=== PATIENT | male | born 1955 | race African-American/Black ===

== ENCOUNTER 2024-02-05 17:31 | Inpatient (IN) | payer BC ==
[~2024-02-05] VITALS: Ht 172.7 cm; Wt 76.7 kg
[2024-02-05 17:31] VITALS: BP_SYST 115; PULSE 89; RESP 18; TEMP 97.8; O2SAT 95
[2024-02-05 19:00] VITALS: O2SAT 98
[2024-02-05] MEDS ORDERED: ACETAMINOPHEN 325 MG TABLET PO PRN (20:15)
[2024-02-05] MEDS ORDERED: ONDANSETRON HCL 4 MG/2 ML VIAL IVP PRN (20:15)
[2024-02-05] MEDS ORDERED: HYDROcodone/ACETAMIN 10-325 MG TAB PO PRN (20:15)
[2024-02-05] MEDS ORDERED: HYDROcodone/ACETAMIN 5-325 MG TAB (NORCO/ VICODIN) PO PRN (20:15)
[2024-02-05] MEDS ORDERED: ALBUTEROL SULFATE 0.083% 2.5 MG/3 ML VIAL.NEB INH PRN (20:15)
[2024-02-05] MEDS ORDERED: hydrALAZINE HCL 20 MG/ML VIAL IVP PRN (20:30)
[2024-02-05 21:04] LABS: BASOPHILS % (AUTO) 0.4 % (0.0-2.0); EOSINOPHILS # (AUTO) 0.3 K/uL (0.0-0.4); EOSINOPHILS % (AUTO) 5.8 % (0.0-4.0); HEMATOCRIT 38.5 % (36-54); HEMOGLOBIN 12.9 g/dL (14.0-18.0); LYMPHOCYTES # (AUTO) 1.1 K/uL (1.0-5.5); LYMPHOCYTES % (AUTO) 20.1 % (20.5-51.5); MEAN CORPUSCULAR HEMOGLOBIN 32 pg (27-31); MEAN CORPUSCULAR HGB CONC 34 % (32-36); MEAN CORPUSCULAR VOLUME 97 fL (79.0-98.0); MONOCYTES # (AUTO) 0.8 K/uL (0.0-1.0); MONOCYTES % (AUTO) 14.9 % (1.7-9.3); NEUTROPHILS # (AUTO) 3.3 K/uL (1.8-7.7); NEUTROPHILS % (AUTO) 58.8 % (40.0-70.0); PLATELET COUNT (AUTO) 137 K/uL (130-430); RED BLOOD CELL COUNT(AUTO) 3.97 MIL/uL (4.2-6.2); RED CELL DISTRIBUTION WIDTH 16.3 % (9.0-15.0); WHITE BLOOD COUNT (AUTO) 5.5 K/uL (4.8-10.8)
[2024-02-05 21:10] LABS: ALBUMIN 2.2 g/dL (3.4-4.8); BILIRUBIN,DIRECT 0.1 mg/dL (0.0-0.3); CALCIUM 9.4 mg/dL (8.4-11.0); CREATININE 6.46 mg/dL (0.55-1.30); POTASSIUM 4.6 mmol/L (3.5-5.1); TOTAL BILIRUBIN 0.2 mg/dL (0.0-1.0); TOTAL PROTEIN, SERUM 6.5 g/dL (6.4-8.3)
[2024-02-05 23:05] VITALS: BP_SYST 118; PULSE 80; O2SAT 95
[2024-02-06 08:10] LABS: BASOPHILS % (AUTO) 0.5 % (0.0-2.0); EOSINOPHILS # (AUTO) 0.3 K/uL (0.0-0.4); EOSINOPHILS % (AUTO) 5.4 % (0.0-4.0); HEMOGLOBIN 13.4 g/dL (14.0-18.0); LYMPHOCYTES % (AUTO) 21.1 % (20.5-51.5); MEAN CORPUSCULAR HEMOGLOBIN 32 pg (27-31); MEAN CORPUSCULAR HGB CONC 33 % (32-36); MEAN CORPUSCULAR VOLUME 98 fL (79.0-98.0); MONOCYTES # (AUTO) 0.6 K/uL (0.0-1.0); MONOCYTES % (AUTO) 12.9 % (1.7-9.3); NEUTROPHILS # (AUTO) 2.9 K/uL (1.8-7.7); NEUTROPHILS % (AUTO) 60.1 % (40.0-70.0); PLATELET COUNT (AUTO) 136 K/uL (130-430); RED BLOOD CELL COUNT(AUTO) 4.19 MIL/uL (4.2-6.2); WHITE BLOOD COUNT (AUTO) 4.9 K/uL (4.8-10.8)
[2024-02-06 08:30] LABS: ALBUMIN 2.3 g/dL (3.4-4.8); CALCIUM 9.5 mg/dL (8.4-11.0); CREATININE 6.93 mg/dL (0.55-1.30); TOTAL BILIRUBIN 0.3 mg/dL (0.0-1.0); TOTAL PROTEIN, SERUM 6.8 g/dL (6.4-8.3)
[2024-02-06 10:18] VITALS: BP_SYST 141; PULSE 76; RESP 18; TEMP 97.2; O2SAT 99
[2024-02-06 11:48] LABS: PHOSPHORUS 6.3 mg/dL (2.7-4.5)
[2024-02-06] MEDS ORDERED: MELA1TAB29 PO (15:43)
[2024-02-06] MEDS ORDERED: FER300L PO (15:43)
[2024-02-06] MEDS ORDERED: DOCU-144 PO (15:43)
[2024-02-06] MEDS ORDERED: CLIN-22 PO (15:43)
[2024-02-06] MEDS ORDERED: NOR10 PO (15:43)
[2024-02-06] MEDS ORDERED: LIP80 PO (15:43)
[2024-02-06] MEDS ORDERED: SER25 PO (15:43)
[2024-02-06] MEDS ORDERED: POLY17PO4 PO (15:43)
[2024-02-06] MEDS ORDERED: LEVO750T64 PO (15:43)
[2024-02-06] MEDS ORDERED: B1/B1TAB5 PO (15:43)
[2024-02-06] MEDS ORDERED: ACET325T PO (15:43)
[2024-02-06] MEDS ORDERED: LEVO100T PO (15:43)
[2024-02-06] MEDS ORDERED: HYDR-4280 PO (15:43)
[2024-02-06] MEDS ORDERED: IBUP-1970 PO (15:43)
[2024-02-06] MEDS ORDERED: VALP250S3 PO (15:47)
[2024-02-06] MEDS ORDERED: VITD400 PO (15:47)
[2024-02-06] MEDS ORDERED: THIA100T70 PO (15:47)
[2024-02-06 16:25] VITALS: BP_SYST 157; PULSE 79; RESP 16; TEMP 97; O2SAT 97
[2024-02-06 17:29] VITALS: BP_SYST 151; PULSE 80; RESP 16; TEMP 97.1; O2SAT 97
[2024-02-06 19:00] VITALS: O2SAT 98
[2024-02-06 20:00] VITALS: BP_SYST 141; PULSE 51; RESP 16; TEMP 97; O2SAT 98
[2024-02-07] VITALS (7 sets, daily range): BP systolic 133–146; PULSE 72–86; RESP 16–18; TEMP 97–98; O2SAT 97–100
[2024-02-07 05:15] LABS: INR 1.1 (0.80-1.20); PROTHROMBIN TIME 11.3 SECS (9.5-12.5)
[2024-02-07 14:31] LABS: BASOPHILS % (AUTO) 0.7 % (0.0-2.0); EOSINOPHILS # (AUTO) 0.2 K/uL (0.0-0.4); EOSINOPHILS % (AUTO) 4.2 % (0.0-4.0); HEMATOCRIT 47.9 % (36-54); HEMOGLOBIN 15.9 g/dL (14.0-18.0); LYMPHOCYTES # (AUTO) 1.4 K/uL (1.0-5.5); MEAN CORPUSCULAR HEMOGLOBIN 32 pg (27-31); MEAN CORPUSCULAR HGB CONC 33 % (32-36); MEAN CORPUSCULAR VOLUME 97 fL (79.0-98.0); MONOCYTES # (AUTO) 0.5 K/uL (0.0-1.0); MONOCYTES % (AUTO) 8.9 % (1.7-9.3); NEUTROPHILS # (AUTO) 3.2 K/uL (1.8-7.7); NEUTROPHILS % (AUTO) 59.2 % (40.0-70.0); PLATELET COUNT (AUTO) 168 K/uL (130-430); RED BLOOD CELL COUNT(AUTO) 4.93 MIL/uL (4.2-6.2); RED CELL DISTRIBUTION WIDTH 16.1 % (9.0-15.0); WHITE BLOOD COUNT (AUTO) 5.3 K/uL (4.8-10.8)
[2024-02-07 14:32] LABS: CALCIUM 10.4 mg/dL (8.4-11.0); PHOSPHORUS 6.4 mg/dL (2.7-4.5); TOTAL BILIRUBIN 0.4 mg/dL (0.0-1.0)
[2024-02-07 14:38] LABS: POTASSIUM 5.6 mmol/L (3.5-5.1)
[2024-02-07 14:39] LABS: CREATININE 7.61 mg/dL (0.55-1.30)
[2024-02-07] MEDS: fentaNYL CITRATE/PF 100 MCG/2 ML AMP ONE (14:47)
[2024-02-07] MEDS: MIDAZOLAM HCL 5 MG/5 ML VIAL ONE (14:48)
[2024-02-08] VITALS (7 sets, daily range): BP systolic 125–138; PULSE 78–87; RESP 16–18; TEMP 97.6–98; O2SAT 96–100
[2024-02-08] MEDS: MELATONIN 3 MG TABLET PO PRN (00:46)
[2024-02-08 07:21] LABS: ALBUMIN 2.3 g/dL (3.4-4.8); CREATININE 5.5 mg/dL (0.55-1.30); POTASSIUM 4.4 mmol/L (3.5-5.1); TOTAL BILIRUBIN 0.4 mg/dL (0.0-1.0)
[2024-02-08 08:24] LABS: BASOPHILS % (AUTO) 0.5 % (0.0-2.0); EOSINOPHILS # (AUTO) 0.3 K/uL (0.0-0.4); EOSINOPHILS % (AUTO) 4.3 % (0.0-4.0); HEMATOCRIT 39.9 % (36-54); HEMOGLOBIN 13.5 g/dL (14.0-18.0); LYMPHOCYTES % (AUTO) 16.5 % (20.5-51.5); MEAN CORPUSCULAR HEMOGLOBIN 33 pg (27-31); MEAN CORPUSCULAR HGB CONC 34 % (32-36); MEAN CORPUSCULAR VOLUME 96 fL (79.0-98.0); MONOCYTES # (AUTO) 0.7 K/uL (0.0-1.0); MONOCYTES % (AUTO) 11.8 % (1.7-9.3); NEUTROPHILS # (AUTO) 4.2 K/uL (1.8-7.7); NEUTROPHILS % (AUTO) 66.9 % (40.0-70.0); PLATELET COUNT (AUTO) 126 K/uL (130-430); RED BLOOD CELL COUNT(AUTO) 4.14 MIL/uL (4.2-6.2); RED CELL DISTRIBUTION WIDTH 16.2 % (9.0-15.0); WHITE BLOOD COUNT (AUTO) 6.3 K/uL (4.8-10.8)
[2024-02-09 00:45] VITALS: BP_SYST 149; PULSE 86; RESP 14; TEMP 97.6; O2SAT 97
[2024-02-09 06:57] LABS: ALBUMIN 2.5 g/dL (3.4-4.8); CALCIUM 9.3 mg/dL (8.4-11.0); CREATININE 4.7 mg/dL (0.55-1.30); POTASSIUM 4.3 mmol/L (3.5-5.1); TOTAL BILIRUBIN 0.4 mg/dL (0.0-1.0); TOTAL PROTEIN, SERUM 7.2 g/dL (6.4-8.3)
[2024-02-09 07:28] LABS: BASOPHILS # (AUTO) 0.1 K/uL (0.0-0.2); BASOPHILS % (AUTO) 0.7 % (0.0-2.0); EOSINOPHILS # (AUTO) 0.4 K/uL (0.0-0.4); EOSINOPHILS % (AUTO) 6.4 % (0.0-4.0); HEMATOCRIT 41.6 % (36-54); HEMOGLOBIN 13.8 g/dL (14.0-18.0); LYMPHOCYTES # (AUTO) 1.6 K/uL (1.0-5.5); LYMPHOCYTES % (AUTO) 22.7 % (20.5-51.5); MEAN CORPUSCULAR HEMOGLOBIN 32 pg (27-31); MEAN CORPUSCULAR HGB CONC 33 % (32-36); MEAN CORPUSCULAR VOLUME 97 fL (79.0-98.0); MONOCYTES # (AUTO) 1.1 K/uL (0.0-1.0); MONOCYTES % (AUTO) 15.2 % (1.7-9.3); NEUTROPHILS # (AUTO) 3.8 K/uL (1.8-7.7); PLATELET COUNT (AUTO) 128 K/uL (130-430); RED BLOOD CELL COUNT(AUTO) 4.28 MIL/uL (4.2-6.2); RED CELL DISTRIBUTION WIDTH 16.1 % (9.0-15.0)
[2024-02-09 08:00] VITALS: BP_SYST 129; PULSE 74; RESP 17; TEMP 98.1; O2SAT 99
[2024-02-09 12:00] VITALS: BP_SYST 135; PULSE 89; RESP 15; TEMP 97.7; O2SAT 97
[2024-02-09 16:32] VITALS: BP_SYST 140; PULSE 87; RESP 15; TEMP 97.8; O2SAT 96
[2024-02-09 20:00] VITALS: BP_SYST 98; PULSE 95; RESP 16; TEMP 97.5; O2SAT 96
[2024-02-10] VITALS: BP_SYST 110; PULSE 91; RESP 16; TEMP 97.9; O2SAT 99
[2024-02-10 05:03] LABS: BASOPHILS % (AUTO) 0.6 % (0.0-2.0); EOSINOPHILS # (AUTO) 0.3 K/uL (0.0-0.4); EOSINOPHILS % (AUTO) 5.3 % (0.0-4.0); HEMATOCRIT 32.7 % (36-54); HEMOGLOBIN 10.7 g/dL (14.0-18.0); LYMPHOCYTES # (AUTO) 1.4 K/uL (1.0-5.5); LYMPHOCYTES % (AUTO) 24.4 % (20.5-51.5); MEAN CORPUSCULAR HEMOGLOBIN 31 pg (27-31); MEAN CORPUSCULAR HGB CONC 33 % (32-36); MEAN CORPUSCULAR VOLUME 96 fL (79.0-98.0); MONOCYTES # (AUTO) 0.9 K/uL (0.0-1.0); MONOCYTES % (AUTO) 15.9 % (1.7-9.3); NEUTROPHILS # (AUTO) 3.2 K/uL (1.8-7.7); NEUTROPHILS % (AUTO) 53.8 % (40.0-70.0); PLATELET COUNT (AUTO) 120 K/uL (130-430); RED BLOOD CELL COUNT(AUTO) 3.42 MIL/uL (4.2-6.2); RED CELL DISTRIBUTION WIDTH 15.7 % (9.0-15.0); WHITE BLOOD COUNT (AUTO) 5.9 K/uL (4.8-10.8)
[2024-02-10 05:22] LABS: ALBUMIN 2.1 g/dL (3.4-4.8); CALCIUM 8.9 mg/dL (8.4-11.0); CREATININE 6.28 mg/dL (0.55-1.30); TOTAL BILIRUBIN 0.4 mg/dL (0.0-1.0); TOTAL PROTEIN, SERUM 6.1 g/dL (6.4-8.3)
[2024-02-10 08:00] VITALS: BP_SYST 123; PULSE 84; RESP 16; TEMP 97.6; O2SAT 95
[2024-02-10 11:36] VITALS: BP_SYST 147; PULSE 90; RESP 16; TEMP 97.4; O2SAT 100
[2024-02-10 16:30] VITALS: BP_SYST 130; PULSE 84; RESP 17; TEMP 97.9; O2SAT 99
[2024-02-10 17:18] VITALS: BP_SYST 130; PULSE 84; RESP 17; TEMP 97.9; O2SAT 99
== END 2024-02-10 18:12 | DRG 698 ==
LOC: SED 17:31 → SMU 20:11
PROVIDERS: ADMIT Family Medicine; ATTEND Family Medicine
PROC: 5A1D70Z Performance of Urinary Filtration, Intermittent, Less than 6 Hours Per Day (ICD-10-PCS; 2024-02-07)
PROC: 0J2TXYZ Change Other Device in Trunk Subcutaneous Tissue and Fascia, External Approach (ICD-10-PCS; principal; 2024-02-07 15:02)
PROC: 5A1D70Z Performance of Urinary Filtration, Intermittent, Less than 6 Hours Per Day (ICD-10-PCS; 2024-02-08)
PROC: B518ZZA Fluoroscopy of Superior Vena Cava, Guidance (ICD-10-PCS; 2024-02-08)
PROC: 5A1D70Z Performance of Urinary Filtration, Intermittent, Less than 6 Hours Per Day (ICD-10-PCS; 2024-02-10)
DX: T82.41XA Breakdown (mechanical) of vascular dialysis catheter, initial encounter (principal); N18.6 End stage renal disease; I12.0 Hypertensive chronic kidney disease with stage 5 chronic kidney disease or end stage renal disease; Y83.8 Other surgical procedures as the cause of abnormal reaction of the patient, or of later complication, without mention of misadventure at the time of the procedure; E83.39 Other disorders of phosphorus metabolism; Z20.822 Contact with and (suspected) exposure to COVID-19; E88.09 Other disorders of plasma-protein metabolism, not elsewhere classified; Y92.89 Other specified places as the place of occurrence of the external cause; Z79.899 Other long term (current) drug therapy; Z86.73 Personal history of transient ischemic attack (TIA), and cerebral infarction without residual deficits
CPT/HCPCS: 36415; 76000; 80048; 80053; 80076; 83735; 84100; 85025; 85610; 85730; 86886; 86900; 86901; 87081; 90935; 90937; 93005; 94070; 94760; 97110-GP; 97163-GP; 97530-GP; 99285; C1750; J2250; J3010

== ENCOUNTER 2024-02-17 10:08 | Observation (INO) | payer BC ==
[~2024-02-17] VITALS: Ht 182.9 cm; Wt 54.0 kg
[~2024-02-17 10:08] MED LIST: ACET325T PO; B1/B1TAB5 PO; DOCU-144 PO; IBUP-1970 PO; LEVO100T PO; LIP80 PO; MELA1TAB29 PO; NOR10 PO; POLY17PO4 PO; SER25 PO; THIA100T70 PO; VALP250S3 PO; VITD400 PO
[2024-02-17 10:22] VITALS: BP_SYST 142; PULSE 99; RESP 18; TEMP 97.8; O2SAT 95
[2024-02-17 12:57] LABS: BASOPHILS % (AUTO) 0.7 % (0.0-2.0); EOSINOPHILS # (AUTO) 0.2 K/uL (0.0-0.4); EOSINOPHILS % (AUTO) 2.5 % (0.0-4.0); HEMATOCRIT 36.2 % (36-54); HEMOGLOBIN 11.6 g/dL (14.0-18.0); LYMPHOCYTES # (AUTO) 1.1 K/uL (1.0-5.5); LYMPHOCYTES % (AUTO) 16.7 % (20.5-51.5); MEAN CORPUSCULAR HEMOGLOBIN 32 pg (27-31); MEAN CORPUSCULAR HGB CONC 32 % (32-36); MEAN CORPUSCULAR VOLUME 100 fL (79.0-98.0); MONOCYTES # (AUTO) 0.6 K/uL (0.0-1.0); MONOCYTES % (AUTO) 9.2 % (1.7-9.3); NEUTROPHILS # (AUTO) 4.8 K/uL (1.8-7.7); NEUTROPHILS % (AUTO) 70.9 % (40.0-70.0); PLATELET COUNT (AUTO) 262 K/uL (130-430); RED BLOOD CELL COUNT(AUTO) 3.64 MIL/uL (4.2-6.2); RED CELL DISTRIBUTION WIDTH 15.7 % (9.0-15.0); WHITE BLOOD COUNT (AUTO) 6.8 K/uL (4.8-10.8)
[2024-02-17 13:16] LABS: ALBUMIN 2.6 g/dL (3.4-4.8); BILIRUBIN,DIRECT 0.1 mg/dL (0.0-0.3); TOTAL BILIRUBIN 0.4 mg/dL (0.0-1.0)
[2024-02-17 13:32] LABS: CALCIUM 9.4 mg/dL (8.4-11.0); CREATININE 6.09 mg/dL (0.55-1.30); POTASSIUM 3.8 mmol/L (3.5-5.1)
[2024-02-18] MEDS ORDERED: VITD400 PO (07:08)
[2024-02-18] MEDS ORDERED: FER300L PO (07:08)
[2024-02-18] MEDS ORDERED: FOLI0.8T41 PO (07:12)
[2024-02-18 07:44] LABS: PROTHROMBIN TIME 10.7 SECS (9.5-12.5)
[2024-02-18 08:28] LABS: BASOPHILS % (AUTO) 0.9 % (0.0-2.0); EOSINOPHILS # (AUTO) 0.3 K/uL (0.0-0.4); EOSINOPHILS % (AUTO) 5.8 % (0.0-4.0); HEMATOCRIT 31.6 % (36-54); HEMOGLOBIN 10.2 g/dL (14.0-18.0); LYMPHOCYTES # (AUTO) 1.3 K/uL (1.0-5.5); LYMPHOCYTES % (AUTO) 24.3 % (20.5-51.5); MEAN CORPUSCULAR HEMOGLOBIN 32 pg (27-31); MEAN CORPUSCULAR HGB CONC 32 % (32-36); MEAN CORPUSCULAR VOLUME 98 fL (79.0-98.0); MONOCYTES # (AUTO) 0.4 K/uL (0.0-1.0); MONOCYTES % (AUTO) 7.2 % (1.7-9.3); NEUTROPHILS # (AUTO) 3.2 K/uL (1.8-7.7); NEUTROPHILS % (AUTO) 61.8 % (40.0-70.0); PLATELET COUNT (AUTO) 232 K/uL (130-430); RED BLOOD CELL COUNT(AUTO) 3.23 MIL/uL (4.2-6.2); RED CELL DISTRIBUTION WIDTH 15.8 % (9.0-15.0); WHITE BLOOD COUNT (AUTO) 5.2 K/uL (4.8-10.8)
[2024-02-18 08:32] LABS: CALCIUM 8.9 mg/dL (8.4-11.0); CREATININE 6.34 mg/dL (0.55-1.30)
[2024-02-18] MEDS: D5/0.45 NS 1,000 ML IV SCH (09:04)
[2024-02-18 09:45] VITALS: BP_SYST 144; PULSE 93; RESP 16; TEMP 97; O2SAT 99
[2024-02-18 09:48] VITALS: BP_SYST 144; PULSE 93; RESP 16; TEMP 97
[2024-02-18] MEDS: amLODIPine BESYLATE 10 MG TABLET PO ONE (11:20)
[2024-02-18 12:09] VITALS: BP_SYST 135; PULSE 80; RESP 16; TEMP 96.2; O2SAT 93
[2024-02-18] MEDS ORDERED: NS IRRIG SOLN 1000 ML IR ONE (13:21)
[2024-02-18] MEDS ORDERED: NS 1000 ML IV.SOLN IV ONE (13:21)
[2024-02-18] MEDS ORDERED: MIDAZOLAM HCL 2 MG/2 ML VIAL (VERSED) ONE (13:21)
[2024-02-18] MEDS ORDERED: ceFAZolin SODIUM 1 GM VIAL ONE (13:21)
[2024-02-18] MEDS ORDERED: METOCLOPRAMIDE HCL 10 MG/2 ML VIAL ONE (13:21)
[2024-02-18] MEDS ORDERED: ONDANSETRON HCL 4 MG/2 ML VIAL ONE (13:21)
[2024-02-18] MEDS ORDERED: fentaNYL CITRATE/PF 100 MCG/2 ML AMP ONE (13:21)
[2024-02-18] MEDS: 0.45% NACL 1,000 ML IV SCH (14:45)
[2024-02-18 16:00] VITALS: BP_SYST 133; PULSE 81; RESP 16; TEMP 97.2; O2SAT 93
[2024-02-18] MEDS: NACL 0.9% 1,000 ML IV SCH (16:42)
[2024-02-18 17:58] VITALS: BP_SYST 98; PULSE 107
[2024-02-18] MEDS: HEPARIN SODIUM,PORCINE 5,000 UNITS/ML VIAL MC ONE (18:07)
[2024-02-18 20:00] VITALS: BP_SYST 92; PULSE 103; RESP 20; TEMP 97.9; O2SAT 100
[2024-02-19] VITALS (7 sets, daily range): BP systolic 134–146; PULSE 78–93; RESP 16–18; TEMP 96.3–97.1; O2SAT 95–99
[2024-02-19] MEDS ORDERED: SER25 PO (09:58)
[2024-02-20 05:10] LABS: HEPATITIS A AB, IgM Negative (Negative); HEPATITIS B CORE AB, IgM Negative (Negative); HEPATITIS B SURFACE AG Negative (Negative); HEPATITIS C VIRUS AB Non Reactive (Non Reactive)
== END 2024-02-19 21:00 ==
LOC: SED 10:08 → SMU 02-18 07:51
PROVIDERS: ADMIT Specialist; ATTEND Specialist
DX: T82.42XA Displacement of vascular dialysis catheter, initial encounter (principal); G93.40 Encephalopathy, unspecified; G40.909 Epilepsy, unspecified, not intractable, without status epilepticus; I12.0 Hypertensive chronic kidney disease with stage 5 chronic kidney disease or end stage renal disease; N18.6 End stage renal disease; E78.5 Hyperlipidemia, unspecified; I73.9 Peripheral vascular disease, unspecified; F70 Mild intellectual disabilities; E03.9 Hypothyroidism, unspecified; F41.9 Anxiety disorder, unspecified; Z86.2 Personal history of diseases of the blood and blood-forming organs and certain disorders involving the immune mechanism; Z99.2 Dependence on renal dialysis; Z79.899 Other long term (current) drug therapy; Y92.89 Other specified places as the place of occurrence of the external cause
CPT/HCPCS: 80076; 80048 ×2; 85025 ×2; 36415 ×2; 71045 ×2; 36558; 85610; 85730; 87081; 93005; 77001; 76942; 99284; 80074; J0690; J1644; J2765; J3465; J2405; J3010; J7030; G0378 ×2; C1750; 90935; G0257

== ENCOUNTER 2024-03-16 12:23 | Emergency (ER) | payer BC ==
[~2024-03-16] VITALS: Ht 177.8 cm; Wt 79.4 kg
[~2024-03-16 12:23] MED LIST changes: +FER300L PO; +FOLI0.8T41 PO
[2024-03-16 12:30] VITALS: BP_SYST 150; PULSE 88; RESP 18; TEMP 97.8; O2SAT 97
[2024-03-16 13:34] LABS: BASOPHILS % (AUTO) 0.2 % (0.0-2.0); EOSINOPHILS # (AUTO) 0.2 K/uL (0.0-0.4); EOSINOPHILS % (AUTO) 1.8 % (0.0-4.0); HEMATOCRIT 30.3 % (36-54); HEMOGLOBIN 9.8 g/dL (14.0-18.0); LYMPHOCYTES # (AUTO) 0.7 K/uL (1.0-5.5); LYMPHOCYTES % (AUTO) 8.6 % (20.5-51.5); MEAN CORPUSCULAR HEMOGLOBIN 33 pg (27-31); MEAN CORPUSCULAR HGB CONC 32 % (32-36); MEAN CORPUSCULAR VOLUME 102 fL (79.0-98.0); MONOCYTES # (AUTO) 0.8 K/uL (0.0-1.0); MONOCYTES % (AUTO) 9.1 % (1.7-9.3); NEUTROPHILS # (AUTO) 6.9 K/uL (1.8-7.7); NEUTROPHILS % (AUTO) 80.3 % (40.0-70.0); PLATELET COUNT (AUTO) 348 K/uL (130-430); RED BLOOD CELL COUNT(AUTO) 2.97 MIL/uL (4.2-6.2); RED CELL DISTRIBUTION WIDTH 18.7 % (9.0-15.0); WHITE BLOOD COUNT (AUTO) 8.6 K/uL (4.8-10.8)
[2024-03-16] MEDS ORDERED: LEVE500T9 PO (13:37)
[2024-03-16 13:58] LABS: ALBUMIN 2.5 g/dL (3.4-4.8); BILIRUBIN,DIRECT 0.1 mg/dL (0.0-0.3); CALCIUM 8.5 mg/dL (8.4-11.0); CREATININE 3.2 mg/dL (0.55-1.30); POTASSIUM 3.7 mmol/L (3.5-5.1); TOTAL BILIRUBIN 0.3 mg/dL (0.0-1.0); TOTAL PROTEIN, SERUM 7.1 g/dL (6.4-8.3)
[2024-03-16] MEDS: levETIRAcetam 1,000 MG IV BAG 100 ML IV ONE (14:31)
[2024-03-16 18:19] VITALS: BP_SYST 144; PULSE 80; RESP 18; TEMP 97.7; O2SAT 97
== END 2024-03-16 18:19 | disposition home or self-care (01) ==
LOC: SED 12:23
DX: R56.9 Unspecified convulsions (principal); R41.0 Disorientation, unspecified; I10 Essential (primary) hypertension; E78.5 Hyperlipidemia, unspecified; Z79.899 Other long term (current) drug therapy; Z79.2 Long term (current) use of antibiotics
CPT/HCPCS: 99284; 96365; 80076; 80048; 85025; 36415; J1953

== ENCOUNTER 2024-04-25 16:11 | Inpatient (IN) | payer BC ==
[~2024-04-25] VITALS: Ht 182.9 cm; Wt 63.5 kg
[~2024-04-25 16:11] MED LIST changes: -B1/B1TAB5 PO; +LEVE500T9 PO
[2024-04-25 16:13] VITALS: BP_SYST 157; PULSE 113; RESP 26; TEMP 98.3; O2SAT 96
[2024-04-25] MEDS ORDERED: CLIN-142 PO (16:31)
[2024-04-25] MEDS: levETIRAcetam 500 MG TABLET PO ONE (16:57)
[2024-04-25] MEDS: levETIRAcetam 500 MG IV PREMIX 100 ML IV ONE (16:57)
[2024-04-25 17:03] LABS: BASOPHILS % (AUTO) 0.2 % (0.0-2.0); EOSINOPHILS # (AUTO) 0.2 K/uL (0.0-0.4); EOSINOPHILS % (AUTO) 3.2 % (0.0-4.0); HEMATOCRIT 35.5 % (36-54); LYMPHOCYTES # (AUTO) 0.4 K/uL (1.0-5.5); LYMPHOCYTES % (AUTO) 5.6 % (20.5-51.5); MEAN CORPUSCULAR HEMOGLOBIN 35 pg (27-31); MEAN CORPUSCULAR HGB CONC 34 % (32-36); MEAN CORPUSCULAR VOLUME 103 fL (79.0-98.0); MONOCYTES # (AUTO) 0.8 K/uL (0.0-1.0); MONOCYTES % (AUTO) 10.9 % (1.7-9.3); NEUTROPHILS # (AUTO) 6.2 K/uL (1.8-7.7); NEUTROPHILS % (AUTO) 80.1 % (40.0-70.0); PLATELET COUNT (AUTO) 164 K/uL (130-430); RED BLOOD CELL COUNT(AUTO) 3.44 MIL/uL (4.2-6.2); RED CELL DISTRIBUTION WIDTH 14.9 % (9.0-15.0); WHITE BLOOD COUNT (AUTO) 7.7 K/uL (4.8-10.8)
[2024-04-25 18:17] LABS: ABG O2 SAT% ESTIMATE 92.9 % (94.0-98.0); BLOOD GAS BASE EXCESS 7.8 mmol/L (-2.0-3.0); BLOOD GAS HCO3 31.7 mmol/L (21.0-28.0); BLOOD GAS PCO2 41.7 mmHg (35.0-48.0); BLOOD GAS PH 7.499 (7.350-7.450); BLOOD GAS PO2 60.1 mmHg (83.0-108.0)
[2024-04-25 18:36] LABS: BILIRUBIN,DIRECT 0.1 mg/dL (0.0-0.3); POTASSIUM 3.5 mmol/L (3.5-5.1); TOTAL BILIRUBIN 0.3 mg/dL (0.0-1.0); TOTAL PROTEIN, SERUM 6.6 g/dL (6.4-8.3)
[2024-04-25 18:38] LABS: CALCIUM 8.9 mg/dL (8.4-11.0)
[2024-04-25 18:39] LABS: ALBUMIN 2.4 g/dL (3.4-4.8); CREATININE 2.65 mg/dL (0.55-1.30)
[2024-04-25] MEDS ORDERED: PIPERACILLIN/TAZOBACTAM 3.375 GM/VIAL (ZOSYN) IV ONE ×2 (19:00→23:21)
[2024-04-25] MEDS: PIPERACILLIN/TAZO 3.375 GM in NS 50 ML IV ONE (19:02)
[2024-04-25 21:00] VITALS: O2SAT 96
[2024-04-25 21:20] VITALS: BP_SYST 145; PULSE 103; RESP 18; TEMP 98.5
[2024-04-25] MEDS ORDERED: LORazepam 2 MG/ML VIAL IVP PRN (22:45)
[2024-04-25] MEDS: D5/0.45 NS 1,000 ML IV SCH (23:28)
[2024-04-26] VITALS (9 sets, daily range): BP systolic 126–143; PULSE 80–88; RESP 16–18; TEMP 97.9–98.3; O2SAT 96–100
[2024-04-26] MEDS: PIPERACILLIN/TAZO 3.375 GM in D5W 50 ML IV SCH (00:17)
[2024-04-26] MEDS ORDERED: LORazepam 2 MG/ML VIAL IVP PRN (10:30)
[2024-04-26] MEDS ORDERED: NALOXONE HCL 0.4 MG/ML AMP (NARCAN) IVP PRN ×2 (10:30)
[2024-04-26] MEDS ORDERED: ACETAMINOPHEN 325 MG TABLET PO PRN ×2 (10:30→10:45)
[2024-04-26] MEDS ORDERED: ONDANSETRON HCL 4 MG/2 ML VIAL IVP PRN (10:30)
[2024-04-26] MEDS ORDERED: NON-FORMULARY MEDICATION (Melatonin/Pyridoxine HCl (B6) (Melatonin 3 mg Tablet) 1 TAB) PO PRN (10:30)
[2024-04-26] MEDS ORDERED: HYDROcodone/ACETAMIN 5-325 MG TAB (NORCO/ VICODIN) PO PRN (10:30)
[2024-04-26] MEDS ORDERED: MELATONIN 3 MG TABLET PO PRN (11:15)
[2024-04-26 11:27] LABS: BILIRUBIN,URINE NEGATIVE (NEGATIVE); BLOOD, URINE 2+ (NEGATIVE); CLARITY/URINE CLEAR (CLEAR); COLOR,URINE YELLOW (YELLOW); GLUCOSE,URINE NEGATIVE (NEGATIVE); KETONES,URINE NEGATIVE (NEGATIVE); LEUKOCYTE ESTERASE ,URINE NEGATIVE (NEGATIVE); NITRITE, URINE NEGATIVE (NEGATIVE); PH,URINE 8.5 (5.0-8.0); PROTEIN URINE 2+ (NEGATIVE); UROBILINOGEN,URINE 0.2 (0.2-1.0)
[2024-04-26 12:02] LABS: BACTERIA,URINE None Seen /HPF (None Seen); WBC,URINE 0-3 /HPF (0-3)
[2024-04-26] MEDS: amLODIPine BESYLATE 10 MG TABLET PO ONE (12:02)
[2024-04-26] MEDS: ALBUTEROL SULFATE 0.083% 2.5 MG/3 ML VIAL.NEB INH PRN (12:25)
[2024-04-26] MEDS: QUEtiapine FUMARATE 25 MG TABLET PO SCH (20:56)
[2024-04-26] MEDS: levETIRAcetam 500 MG TABLET PO SCH (20:56)
[2024-04-26] MEDS: FERROUS SULFATE 300 MG/5 ML UDC PO SCH (20:59)
[2024-04-26] MEDS: VALPROIC ACID ORAL SYRUP 250 MG/5 ML UDC PO SCH (20:59)
[2024-04-26] MEDS: ATORVASTATIN 20 MG TABLET PO SCH (21:00)
[2024-04-26] MEDS: DOCUSATE SODIUM 100 MG CAPSULE PO SCH (21:02)
[2024-04-27 00:05] VITALS: BP_SYST 134; PULSE 78; RESP 16; TEMP 96.9; O2SAT 98
[2024-04-27] MEDS: LEVOTHYROXINE SODIUM 0.1 MG TABLET PO SCH (06:04)
[2024-04-27 07:32] VITALS: BP_SYST 134; PULSE 76; RESP 16; TEMP 96.9; O2SAT 100
[2024-04-27 07:33] LABS: BASOPHILS % (AUTO) 0.6 % (0.0-2.0); EOSINOPHILS # (AUTO) 0.3 K/uL (0.0-0.4); EOSINOPHILS % (AUTO) 5.4 % (0.0-4.0); HEMATOCRIT 33.9 % (36-54); HEMOGLOBIN 11.1 g/dL (14.0-18.0); LYMPHOCYTES # (AUTO) 0.9 K/uL (1.0-5.5); MEAN CORPUSCULAR HEMOGLOBIN 34 pg (27-31); MEAN CORPUSCULAR HGB CONC 33 % (32-36); MEAN CORPUSCULAR VOLUME 105 fL (79.0-98.0); MONOCYTES # (AUTO) 0.7 K/uL (0.0-1.0); MONOCYTES % (AUTO) 14.7 % (1.7-9.3); NEUTROPHILS % (AUTO) 60.3 % (40.0-70.0); PLATELET COUNT (AUTO) 161 K/uL (130-430); RED BLOOD CELL COUNT(AUTO) 3.24 MIL/uL (4.2-6.2); RED CELL DISTRIBUTION WIDTH 14.6 % (9.0-15.0); WHITE BLOOD COUNT (AUTO) 4.9 K/uL (4.8-10.8)
[2024-04-27 07:52] VITALS: O2SAT 100
[2024-04-27 08:05] LABS: ALBUMIN 2.2 g/dL (3.4-4.8); CALCIUM 9.2 mg/dL (8.4-11.0); CREATININE 5.21 mg/dL (0.55-1.30); PHOSPHORUS 5.3 mg/dL (2.7-4.5); POTASSIUM 3.8 mmol/L (3.5-5.1); TOTAL BILIRUBIN 0.5 mg/dL (0.0-1.0); TOTAL PROTEIN, SERUM 6.4 g/dL (6.4-8.3)
[2024-04-27] MEDS: CHOLECALCIFEROL (VITAMIN D3) 5,000 UNIT TABLET PO SCH (09:35)
[2024-04-27] MEDS: amLODIPine BESYLATE 10 MG TABLET PO SCH (09:36)
[2024-04-27] MEDS: NEPHROVITE, (FOLIC ACID/VITAMIN B COMP W-C 1 TAB) PO SCH (09:36)
[2024-04-27] MEDS: THIAMINE HCL 100 MG TABLET PO SCH (09:36)
[2024-04-27] MEDS: POLYETHYLENE GLYCOL 3350, 17 GM/ POWD.PACK PO SCH (09:36)
[2024-04-27 12:31] VITALS: BP_SYST 130; PULSE 77; RESP 17; TEMP 97.2; O2SAT 97
[2024-04-27] MEDS: cefTRIAXone 1 GM in D5W 50 ML IV SCH (12:41)
[2024-04-27] MEDS: IBUPROFEN 800 MG TABLET PO PRN (12:47)
[2024-04-27 16:33] VITALS: BP_SYST 129; PULSE 75; RESP 17; TEMP 97; O2SAT 99
[2024-04-27 20:00] VITALS: BP_SYST 140; PULSE 84; RESP 18; TEMP 98.5; O2SAT 96
[2024-04-27] MEDS: HYDROcodone/ACETAMIN 10-325 MG TAB PO PRN (21:19)
[2024-04-28] VITALS (8 sets, daily range): BP systolic 126–160; PULSE 69–88; RESP 17–18; TEMP 97–98.2; O2SAT 95–99
[2024-04-28] MEDS ORDERED: CEPH250C PO (09:52)
[2024-04-29] VITALS (7 sets, daily range): BP systolic 121–144; PULSE 74–85; RESP 14–18; TEMP 95.7–97.9; O2SAT 95–100
== END 2024-04-29 11:40 | DRG 100 ==
LOC: SED 16:11 → STU 19:52
PROVIDERS: ADMIT Preventive Medicine Preventive Medicine/Occupational Environmental Medicine; ATTEND Specialist
PROC: 4A00X4Z Measurement of Central Nervous Electrical Activity, External Approach (ICD-10-PCS; principal; 2024-04-26)
PROC: 5A1D70Z Performance of Urinary Filtration, Intermittent, Less than 6 Hours Per Day (ICD-10-PCS; 2024-04-28)
DX: G40.909 Epilepsy, unspecified, not intractable, without status epilepticus (principal); J69.0 Pneumonitis due to inhalation of food and vomit; N18.6 End stage renal disease; I12.0 Hypertensive chronic kidney disease with stage 5 chronic kidney disease or end stage renal disease; G47.00 Insomnia, unspecified; E03.9 Hypothyroidism, unspecified; D63.1 Anemia in chronic kidney disease; E55.9 Vitamin D deficiency, unspecified; E78.5 Hyperlipidemia, unspecified; E88.09 Other disorders of plasma-protein metabolism, not elsewhere classified; R73.9 Hyperglycemia, unspecified; Z99.2 Dependence on renal dialysis; R74.01 Elevation of levels of liver transaminase levels; K59.00 Constipation, unspecified; Z86.73 Personal history of transient ischemic attack (TIA), and cerebral infarction without residual deficits; Z79.899 Other long term (current) drug therapy; Z88.8 Allergy status to other drugs, medicaments and biological substances
CPT/HCPCS: 36415; 36600; 70450-TC; 71045; 80048; 80053; 80076; 81000; 81001; 81015; 82803; 83605; 83735; 84100; 85025; 87040; 87081; 90935; 92610-GN; 94070; 94640; 94760; 95816; 99285; G0378; J0696; J1953; J2543; J7030; J7060